=== PATIENT | female | born 1965 | race African-American/Black ===

== ENCOUNTER 2017-05-05 09:55 | Emergency (ER) | payer OTHER ==
[~2017-05-05] VITALS: Ht 167.6 cm; Wt 65.8 kg
[~2017-05-05 09:55] MED LIST: ALDACTONE25 MG PO; CEFTIN500 MG PO; CIPRO500 MG PO; COLACE100 MG PO; COZAAR 50 MG TA50 M2 PO; HYDROCHLOROTHIA25 M1 PO; IBUPROFEN 200200 M1 PO; IBUPROFEN 600600 M1 PO; METOPROLOL SUCC25 M1 PO; MIRALAX17 GM PO; NORCO 5-325 TA1 EACH PO; NORVASC10 MG PO; SENNA LAXATIVE1 EACH PO; TECFIDERA240 MG PO
[2017-05-05] MEDS ORDERED: TRAMADOL 50 MG50 MG PO (10:53)
== END 2017-05-05 12:40 | disposition home or self-care (01) ==
LOC: ER 09:55
DX: S82.431A Displaced oblique fracture of shaft of right fibula, initial encounter for closed fracture (principal); G35 Multiple sclerosis; I10 Essential (primary) hypertension; D57.3 Sickle-cell trait; Z90.49 Acquired absence of other specified parts of digestive tract; Z86.2 Personal history of diseases of the blood and blood-forming organs and certain disorders involving the immune mechanism; Z86.73 Personal history of transient ischemic attack (TIA), and cerebral infarction without residual deficits; Z87.442 Personal history of urinary calculi; W18.30XA Fall on same level, unspecified, initial encounter; Y93.89 Activity, other specified; Y92.090 Kitchen in other non-institutional residence as the place of occurrence of the external cause; Y99.8 Other external cause status